=== PATIENT | male | born 1975 | race Asian ===

== ENCOUNTER 2023-02-27 18:46 | Emergency (ER) | payer OTHER ==
[2023-02-27 19:10] VITALS: BP 144/82; TEMP 99.4; BMI 27.4
[2023-02-27] MEDS ORDERED: LACTATED RINGERS SOLUTION 1000 ML INFUS.BAG IV ONE (20:01)
[2023-02-27] MEDS ORDERED: ACETAMINOPHEN 1000 MG/100 ML BAG IVPB ONE (20:03)
[2023-02-27 20:22] LABS: BASO % 0.5 % (0-2.0); EOS % 0.6 % (0-4.5); HEMATOCRIT 44.1 % (35.4-49); HEMOGLOBIN 14.8 GM/dL (11.7-16.9); LYMPH % 10.2 % (8-40); MCH 28.6 pg (25.7-33.7); MCHC 33.6 g/dl (32.0-35.9); MEAN CELL VOLUME 85.2 fl (80-96); MEAN PLT VOLUME 7.7 fl (7.5-11.1); MONO % 7.7 % (3.8-10.2); PLATELET COUNT 230 10^3/uL (134-434); RBC 5.18 M/mm3 (4.00-5.60); RDW 13.6 % (11.9-15.9); WHITE BLOOD COUNT 11.7 K/mm3 (4.0-10.0)
[2023-02-27] MEDS ORDERED: ACETAMINOPHEN INJECTION 100 ML IVPB ONE (20:30)
[2023-02-27 20:40] LABS: POTASSIUM 3.6 mmol/L (3.5-5.1)
[2023-02-27 20:41] LABS: CALCIUM 8.6 mg/dL (8.5-10.1)
[2023-02-27 20:42] LABS: ALBUMIN 3.6 g/dl (3.4-5.0); BLOOD UREA NITROGEN 11.9 mg/dL (7-18)
[2023-02-27 20:45] LABS: CREATININE 0.9 mg/dL (0.55-1.3)
[2023-02-27 20:47] LABS: TOT PROT 7.7 g/dl (6.4-8.2)
[2023-02-27 21:33] VITALS: PULSE 89; RESP 20
== END 2023-02-27 21:43 | disposition home or self-care (01) ==
LOC: JER 18:46
PROC: 3E033NZ Introduction of Analgesics, Hypnotics, Sedatives into Peripheral Vein, Percutaneous Approach (ICD-10-PCS; principal; 2023-02-27)
DX: R51.9 Headache, unspecified (principal); R06.02 Shortness of breath; U07.1 COVID-19
CPT/HCPCS: 0241U-QW; 36415; 80053; 84484; 85025; 85379; 93005; 93010; 99284-25